=== PATIENT | female | born 1990 | race African-American/Black ===

== ENCOUNTER 2017-12-03 11:09 | Emergency (ER) | payer OTHER, MEDICAID ==
[~2017-12-03] VITALS: Ht 165.1 cm; Wt 86.2 kg
[~2017-12-03 11:09] MED LIST: PREDNISONE 20 M20 M1 PO
[2017-12-03 11:21] VITALS: BP 125/87
[2017-12-03 11:25] LABS: URINE BILIRUBIN NEGATIVE (Negative); URINE BLOOD NEGATIVE (Negative); URINE CLARITY CLEAR; URINE COLOR YELLOW; URINE GLUCOSE-RANDOM NEGATIVE (Negative); URINE KETONES NEGATIVE (Negative); URINE LEUKOCYTES-REFLEX NEGATIVE (Negative); URINE NITRITE-REFLEX NEGATIVE (Negative); URINE PROTEIN TRACE (Negative)
== END 2017-12-03 11:59 | disposition home or self-care (01) ==
LOC: M.ERS 11:09
PROVIDERS: Nurse Practitioner Family
DX: Z20.2 Contact with and (suspected) exposure to infections with a predominantly sexual mode of transmission (principal)

== ENCOUNTER 2018-02-19 08:44 | Emergency (ER) | payer OTHER ==
[~2018-02-19] VITALS: Ht 165.1 cm; Wt 86.2 kg
[2018-02-19 08:55] VITALS: BP 133/96
[2018-02-19] MEDS ORDERED: IBUPROFEN 600600 M1 PO (09:00)
[2018-02-19] MEDS ORDERED: EXCEDRIN CAPLE1 EACH PO (09:00)
[2018-02-19] MEDS ORDERED: PENICILLIN V P500 MG PO (09:11)
[2018-02-19] MEDS ORDERED: ULTRAM50 MG PO (09:11)
== END 2018-02-19 09:22 | disposition home or self-care (01) ==
LOC: M.ERS 08:44
DX: K08.89 Other specified disorders of teeth and supporting structures (principal); Z90.49 Acquired absence of other specified parts of digestive tract

== ENCOUNTER 2018-03-28 19:38 | Emergency (ER) | payer OTHER ==
[~2018-03-28] VITALS: Ht 160 cm; Wt 74.8 kg
[~2018-03-28 19:38] MED LIST changes: +EXCEDRIN CAPLE1 EACH PO; +IBUPROFEN 600600 M1 PO; +PENICILLIN V P500 MG PO; +ULTRAM50 MG PO
[2018-03-28 20:24] LABS: CALCIUM 8.4 mg/dL (8.5-10.1); CREATININE 0.7 mg/dL (0.6-1.3); POTASSIUM 3.3 mmol/L (3.5-5.1)
[2018-03-28] MEDS ORDERED: ROBAXIN500 MG PO (20:34)
[2018-03-28 20:49] VITALS: BP 132/96
== END 2018-03-28 20:52 | disposition home or self-care (01) ==
LOC: M.ERS 19:38
PROVIDERS: Nurse Practitioner Family
DX: L60.0 Ingrowing nail (principal); M79.662 Pain in left lower leg; Z90.49 Acquired absence of other specified parts of digestive tract

== ENCOUNTER 2018-10-26 09:23 | Emergency (ER) | payer OTHER ==
[~2018-10-26] VITALS: Ht 165.1 cm; Wt 89.8 kg
[~2018-10-26 09:23] MED LIST changes: +ROBAXIN500 MG PO
[2018-10-26 09:54] VITALS: BP 153/108
[2018-10-26] MEDS ORDERED: BLEPH-105 ML OPHTHALMIC (09:54)
== END 2018-10-26 09:56 | disposition home or self-care (01) ==
LOC: M.ERS 09:23
DX: H57.89 Other specified disorders of eye and adnexa (principal); H57.11 Ocular pain, right eye; Z90.49 Acquired absence of other specified parts of digestive tract; Z98.890 Other specified postprocedural states

== ENCOUNTER 2019-02-11 17:40 | Emergency (ER) | payer BC ==
[~2019-02-11] VITALS: Ht 165.1 cm; Wt 86.2 kg
[~2019-02-11 17:40] MED LIST changes: +BLEPH-105 ML OPHTHALMIC
[2019-02-11] MEDS ORDERED: FLAGYL500 M1 PO (18:47)
[2019-02-11 19:18] VITALS: BP 140/92
== END 2019-02-11 19:18 | disposition home or self-care (01) ==
LOC: M.ERS 17:40
DX: N76.0 Acute vaginitis (principal); M79.645 Pain in left finger(s); Z90.49 Acquired absence of other specified parts of digestive tract; Z98.890 Other specified postprocedural states

== ENCOUNTER 2019-08-05 16:56 | Emergency (ER) | payer BC ==
[~2019-08-05] VITALS: Ht 165.1 cm; Wt 89.8 kg
[~2019-08-05 16:56] MED LIST changes: +FLAGYL500 M1 PO
[2019-08-05 17:31] LABS: URINE BILIRUBIN NEGATIVE (Negative); URINE BLOOD NEGATIVE (Negative); URINE CLARITY CLEAR; URINE COLOR YELLOW; URINE GLUCOSE-RANDOM NEGATIVE (Negative); URINE KETONES NEGATIVE (Negative); URINE LEUKOCYTES-REFLEX NEGATIVE (Negative); URINE NITRITE-REFLEX NEGATIVE (Negative); URINE PROTEIN TRACE (Negative); URINE SPECIFIC GRAVITY >= 1.030 (1.005-1.030); URINE UROBILINOGEN 0.2 E.U./dl (0.2-1.0)
[2019-08-05] MEDS ORDERED: DOXYCYCLINE MO100 M1 PO (17:48)
[2019-08-05 18:07] VITALS: BP 138/72
== END 2019-08-05 18:08 | disposition home or self-care (01) ==
LOC: M.ERS 16:56
PROVIDERS: Physician Assistant
DX: N89.8 Other specified noninflammatory disorders of vagina (principal); Z90.49 Acquired absence of other specified parts of digestive tract; Z98.890 Other specified postprocedural states

== ENCOUNTER 2019-08-17 18:57 | Emergency (ER) | payer BC ==
[~2019-08-17] VITALS: Ht 165.1 cm; Wt 89.8 kg
[~2019-08-17 18:57] MED LIST changes: +DOXYCYCLINE MO100 M1 PO
[2019-08-17] MEDS ORDERED: MIRENA1 EACH INTRAUTERI (19:21)
[2019-08-17 20:03] LABS: URINE BILIRUBIN NEGATIVE (Negative); URINE BLOOD NEGATIVE (Negative); URINE CLARITY CLEAR; URINE COLOR YELLOW; URINE GLUCOSE-RANDOM NEGATIVE (Negative); URINE KETONES NEGATIVE (Negative); URINE LEUKOCYTES-REFLEX NEGATIVE (Negative); URINE NITRITE-REFLEX NEGATIVE (Negative); URINE PROTEIN NEGATIVE (Negative); URINE SPECIFIC GRAVITY >= 1.030 (1.005-1.030); URINE UROBILINOGEN 0.2 E.U./dl (0.2-1.0)
[2019-08-17 20:50] VITALS: BP 141/94
== END 2019-08-17 20:51 | disposition home or self-care (01) ==
LOC: M.ERS 18:57
PROVIDERS: Physician Assistant
DX: N89.8 Other specified noninflammatory disorders of vagina (principal); Z90.49 Acquired absence of other specified parts of digestive tract; Z98.890 Other specified postprocedural states